=== PATIENT | male | born 2000 ===

== ENCOUNTER 2018-08-25 23:24 | Emergency (ER) | payer OTHER ==
[2018-08-25 23:28] VITALS: RESP 16
[2018-08-26] MEDS ORDERED: Sodium Chloride 0.9% 1,000 ML IV STA (00:02)
--- NOTE | 2018-08-26 01:06 | ED PDOC ---
HPI: Psych/Substance Abuse Time Seen by Provider: 08/25/18 23:41 Chief Complaint (Nursing): Psychiatric Evaluation Chief Complaint (Provider): Psychiatric Evaluation History Per: Patient, Family (Sister) History/Exam Limitations: no limitations Associated Symptoms: Suicidal Thoughts Additional Complaint(s): 18 years old male with no significant PMHx brought to ER for psychiatric evaluation after he made suicidal threats and became agitates and aggressive at home. Patient admits states he has no recollection of incident and admits to drinking [employer]. Sister on bedside confirms the event. In the ED, patient is calm, cooperative and resting comfortably. Patient offers no medical complaints and denies suicidal and homicidal ideation and auditory hallucinations. PMD: Brendon Carmichael Past Medical History Reviewed: Historical Data, Nursing Documentation, Vital Signs Vital Signs: Last Vital Signs Temp 100.6 F H 08/25/18 23:25 Pulse 120 H 08/25/18 23:25 Resp 16 08/25/18 23:25 BP 115/68 08/25/18 23:25 Pulse Ox 96 08/25/18 23:25 - Medical History PMH: No Chronic Diseases - Surgical History Surgical History: No Surg Hx - Family History Family History: States: Unknown Family Hx - Social History Current smoker - smoking cessation education provided: No Alcohol: Social Drugs: Denies - Allergies Allergies/Adverse Reactions: Allergies Allergy/AdvReac Type Severity Reaction Status Date / Time No Known Allergies Allergy Verified 08/25/18 23:25 Review of Systems ROS Statement: Except As Marked, All Systems Reviewed And Found Negative Psych: Positive for: Suicidal ideation (not present at this time). Negative for: Other (homicidal ideation) Physical Exam - Reviewed Nursing Documentation Reviewed: Yes Vital Signs Reviewed: Yes - Physical Exam Appears: Positive for: Well, No Acute Distress Head Exam: Positive for: ATRAUMATIC, NORMOCEPHALIC Skin: Positive for: Warm (fever), Dry Eye Exam: Positive for: Normal appearance, EOMI, PERRL ENT: Positive for: Normal ENT Inspection Neck: Positive for: Normal, Painless ROM, Supple Cardiovascular/Chest: Positive for: Regular Rate, Rhythm, Tachycardia Respiratory: Positive for: Normal Breath Sounds. Negative for: Respiratory Distress Gastrointestinal/Abdominal: Positive for: Normal Exam, Soft. Negative for: Tenderness Back: Positive for: Normal Inspection. Negative for: L CVA Tenderness, R CVA Tenderness Extremity: Positive for: Normal ROM. Negative for: Pedal Edema, Deformity Neurological/Psych: Positive for: Awake, Alert, Oriented (x3) - Laboratory Results Result Diagrams: 08/26/18 01:05 08/26/18 01:05 - ECG O2 Sat by Pulse Oximetry: 96 (RA) Pulse Ox Interpretation: Normal Medical Decision Making Medical Decision Making: Time: 2341 Initial Impression: 18 y/o male with alcohol induced mood disorder Initial Plan: --Crisis evaluation --Alchol serum --CMP --Creatinine --Drug screen --Lactic acid --Urine --Urine dipstick --CBC --Tylenol 325 mg PO --Blood culture --Influenza A B --Urinalysis Scribe Attestation: Documented by Luli Dacosta, acting as a scribe for Aba West MD. Provider Scribe Attestation: All medical record entries made by the Scribe were at my direction and personally dictated by me. I have reviewed the chart and agree that the record accurately reflects my personal performance of the history, physical exam, medical decision making, and the department course for this patient. I have also personally directed, reviewed, and agree with the discharge instructions and disposition. Disposition - Clinical Impression Clinical Impression: Alcohol-induced mood disorder, Viral illness - Disposition Referrals: Brendon Carmichael MD [Primary Care Provider] - Disposition: Routine/Home Disposition Time: 03:00 Condition: IMPROVED Instructions: Alcohol Use - When Is Drinking a Problem?, Viral Syndrome (DC) Forms: [employer] ([employer])
[2018-08-26 02:14] LABS: BASO % 0.6 % (0.0-2.0); EOS # 0.1 K/uL (0.0-0.7); EOS % 0.8 % (0.0-4.0); HEMOGLOBIN 13.9 g/dL (12.0-18.0); LYMPH % 39.5 % (20.0-40.0); MEAN CELL VOLUME 91.9 fl (80.0-94.0); MEAN CORPUSCULAR HEMOGLOBIN 31.7 pg (27.0-31.0); MEAN CORPUSCULAR HGB CONC 34.5 g/dL (33.0-37.0); MEAN PLATELET VOLUME 8.7 fl (7.2-11.7); MONO # 0.4 K/uL (0.0-0.8); MONO % 5.7 % (0.0-10.0); NEUT # 4.1 K/uL (1.8-7.0); NEUT % 53.4 % (50.0-75.0); NRBC % 0.1 % (0.0-0.0); RBC 4.39 Mil/uL (4.40-5.90); RED CELL DISTRIBUTION WIDTH 12.9 % (11.5-14.5); WHITE BLOOD COUNT 7.6 K/uL (4.8-10.8)
[2018-08-26 02:17] LABS: ALB/GLOB RATIO 1.3 (1.0-2.1); ALBUMIN 4.9 g/dL (3.5-5.0); ALT/SGPT 49 U/L (21-72); AST/SGOT 35 U/L (17-59); BLOOD UREA NITROGEN 13 mg/dl (9-20); CALCIUM 9.2 mg/dL (8.4-10.2); GFR NON-AFRICAN AMERICAN > 60
[2018-08-26 03:20] LABS: URINE BILIRUBIN NEGATIVE (NEGATIVE); URINE BLOOD NEGATIVE (NEGATIVE); URINE CLARITY SLIGHTY-CLOUDY (Clear); URINE COLOR YELLOW (YELLOW); URINE GLUCOSE (UA) NEG (NEGATIVE); URINE HYALINE CAST 0-2 /hpf (0-2); URINE LEUKOCYTE ESTERASE NEG Leu/uL (Negative); URINE PROTEIN NEGATIVE (NEGATIVE); URINE UROBILINOGEN 0.2-1.0 mg/dL (0.2-1.0)
[2018-08-26 03:32] LABS: BARBITURATES, UR NEGATIVE (NEGATIVE); BENZODIAZEPINES, UR NEGATIVE (NEGATIVE); OPIATES, UR NEGATIVE (NEGATIVE); PHENCYCLIDINE, UR NEGATIVE (NEGATIVE)
[2018-08-26 03:40] VITALS: BP 126/81; PULSE 85; TEMP 98.9
[2018-08-26 04:05] VITALS: O2SAT 96
== END 2018-08-26 03:40 | disposition home or self-care (01) ==
LOC: H.ER 23:24
DX: F10.94 Alcohol use, unspecified with alcohol-induced mood disorder (principal); B34.9 Viral infection, unspecified
CPT/HCPCS: 80053; 80320; 80324; 80345; 80346; 80349; 80353; 80358; 80361; 81003; 82550; 83605; 83992; 85025; 87040; 87804; 99283; J7030